=== PATIENT | female | born 1980 | race Caucasian/White ===

== ENCOUNTER 2017-08-24 18:45 | Emergency (ER) | payer MEDICAID, OTHER ==
--- NOTE | 2017-08-24 21:02 | EDM.PDOC ---
ED HPI GENERAL MEDICAL PROBLEM - General Chief Complaint: Lower Extremity Injury/Pain Stated Complaint: SPRAINED LEFT ANKLE Time Seen by Provider: 08/24/17 19:50 Source of Information: Reports: Patient, Family History Limitations: Reports: No Limitations - History of Present Illness INITIAL COMMENTS - FREE TEXT/NARRATIVE: pt stopped at the gas station and as she got out of the car and the left ankle turned inward. She developed alot of swelling in the ankle quite rapidly. Onset: Today Duration: Hour(s): Location: Reports: Lower Extremity, Left Associated Symptoms: Reports: No Other Symptoms Left Ankle Pain Score (Numeric/FACES): 4 - Related Data Allergies Allergy/AdvReac Type Severity Reaction Status Date / Time No Known Allergies Allergy Verified 08/24/17 19:52 Home Meds: Home Meds ALPRAZolam [Alprazolam] 1 mg PO BEDTIME 08/24/17 [History] Citalopram Hydrobromide [Celexa] 40 mg PO BEDTIME 08/24/17 [History] Norgestimate-Ethinyl Estradiol [Mononessa 28 Tablet] 1 tab PO BEDTIME 08/24/17 [ History] Past Medical History - Past Health History Medical/Surgical History: Denies Medical/Surgical History - Infectious Disease History Infectious Disease History: Reports: Chicken Pox Social & Family History - Tobacco Use Smoking Status *Q: Never Smoker Second Hand Smoke Exposure: No - Caffeine Use Caffeine Use: Reports: Coffee - Recreational Drug Use Recreational Drug Use: No Review of Systems - Review of Systems Review Of Systems: See Below Constitutional: Reports: No Symptoms Eyes: Reports: No Symptoms Ears: Reports: No Symptoms Nose: Reports: No Symptoms Mouth/Throat: Reports: No Symptoms Respiratory: Reports: No Symptoms Cardiovascular: Reports: No Symptoms GI/Abdominal: Reports: No Symptoms Genitourinary: Reports: No Symptoms Musculoskeletal: Reports: Other ( swelling in the left ankle area. She is mildly tender. ) Skin: Reports: No Symptoms ED EXAM, GENERAL - Physical Exam Exam: See Below Free Text/Narrative:: Pt arrived with swelling in the ankle and she has mild discomfort. She turned her ankle at a gas station Exam Limited By: No Limitations General Appearance: Alert, Mild Distress Extremities: Other (left ankle is swollen and she has mild tenderness. ) Neurological: Alert, Oriented Course - Vital Signs Last Recorded V/S: Last Vital Signs Temp 36.5 C 08/24/17 19:48 Pulse 95 08/24/17 19:48 Resp 16 08/24/17 19:48 BP 137/86 08/24/17 19:48 Pulse Ox 96 08/24/17 19:48 - Re-Assessments/Exams Free Text/Narrative Re-Assessment/Exam: 08/24/17 21:06 xray shows no definite fractures she has a small piece of bone pulled off of the tibia medially. This could indicate a small tear with the sprain/. Departure - Departure Time of Disposition: 20:59 Disposition: Home, Self-Care 01 Condition: Fair Clinical Impression: Left ankle sprain - Discharge Information Instructions: Crutch Use, Adult, [id number], Ankle Sprain, [id number] Referrals: PCP,None [Primary Care Provider] - Forms: ED Department Discharge Care Plan Goals: stirrup splint, crutches, elevate leg and ice pack motrin 600mg tid, as needed for pain, no work for the next 2 days, If persistent pain by the first of the week pt should see ortho for further care.
--- NOTE | 2017-08-25 09:27 | CR ---
Ankle Min 3V Lt CLINICAL HISTORY: Ankle strain, swelling FINDINGS: The soft tissues are swollen. This is more prominent over the lateral malleolus.. There is a small ossific density off the tip of the medial malleolus. This is suspect for an avulsion. There i s a small calcaneal spur. Ankle mortise is symmetric. Impression: Small ossific density off the tip of the medial malleolus is suspect for small avulsion f racture. Moderate soft tissue swelling
== END 2017-08-24 21:55 | disposition home or self-care (01) ==
LOC: JP.ED 18:45
DX: S93.402A Sprain of unspecified ligament of left ankle, initial encounter (principal); X50.9XXA Other and unspecified overexertion or strenuous movements or postures, initial encounter
CPT/HCPCS: 73610-26-LT; 73610-LT; 99284

== ENCOUNTER 2019-06-10 12:54 | Emergency (ER) | payer OTHER ==
[2019-06-10] MEDS ORDERED: Bacitracin Oint 1 GM U/D Packet TOP ONE (13:21)
--- NOTE | 2019-06-10 13:25 | EDM.PDOC ---
ED HPI GENERAL MEDICAL PROBLEM - General Chief Complaint: Laceration Stated Complaint: LACERATION ON LT PINKY Time Seen by Provider: 06/10/19 13:19 Source of Information: Reports: Patient, Family, RN Notes Reviewed History Limitations: Reports: No Limitations - History of Present Illness INITIAL COMMENTS - FREE TEXT/NARRATIVE: 39-year-old female presents emergency department today with a laceration to digit #5 left hand she injured herself with an [employer] knife doing a craft project she has no functional complaints bleeding is controlled - Related Data Allergies Allergy/AdvReac Type Severity Reaction Status Date / Time Sulfa (Sulfonamide Allergy Vomiting Verified 06/10/19 13:12 Antibiotics) Home Meds: Home Meds ALPRAZolam [Alprazolam] 1 mg PO BEDTIME 08/24/17 [History] PARoxetine HCL [Paroxetine HCl] 1 tab PO DAILY 06/10/19 [History] Past Medical History - Infectious Disease History Infectious Disease History: Reports: Chicken Pox - Past Surgical History Female Surgical History: Reports: Hysterectomy Social & Family History - Tobacco Use Smoking Status *Q: Never Smoker - Caffeine Use Caffeine Use: Reports: Coffee ED ROS GENERAL - Review of Systems Review Of Systems: See Below Constitutional: Reports: No Symptoms Skin: Reports: Wound Neurological: Reports: No Symptoms ED EXAM, SKIN/RASH Exam: See Below Text/Narrative:: Examination of the left hand there is a 1 cm laceration on the palmar surface digit #5 distal tip full range of motion of all digits the laceration is completely through the dermis radial pulses +2, sensation is intact Exam Limited By: No Limitations General Appearance: Alert, WD/WN, No Apparent Distress ED SKIN PROCEDURES - Laceration/Wound Repair Left Digit - 5th (Baby) Appearance: Subcutaneous, Linear Distal NVT: Neuro & Vascular Intact, No Tendon Injury Anesthetic Type: Digital Local Anesthesia - Lidocaine (Xylocaine): 1% Plain Local Anesthetic Volume: 2cc Skin Prep: Saline Saline Irrigation (cc's): 40 Exploration/Debridement/Repair: Wound Explored, In a Bloodless Field, Explored to Base Closed with: Sutures Lac/Wound length In cm: 1 Suture Size: 4-0 # of Sutures: 3 Suture Type: Prolene, Interrupted Sterile Dressing Applied: Nurse Tetanus Status Addressed: Yes (2014) Complications: No Course - Vital Signs Last Recorded V/S: Last Vital Signs Temp 98.1 F 06/10/19 13:17 Pulse 109 H 06/10/19 13:17 Resp 18 06/10/19 13:17 BP 151/91 H 06/10/19 13:17 Pulse Ox 96 06/10/19 13:17 - Orders/Labs/Meds Meds: Medications Discontinued Medications Generic Name Dose Route Start Last Admin Trade Name Nidia PRN Reason Stop Dose Admin Bacitracin 1 dose 06/10/19 13:21 06/10/19 13:30 Bacitracin Oint 1 Gm TOP 06/10/19 13:22 1 dose ONETIME ONE Administration Lidocaine HCl 5 ml 06/10/19 13:21 06/10/19 13:30 Xylocaine-Mpf 1% INJECT 06/10/19 13:22 5 ml ONETIME ONE Administration Departure - Departure Time of Disposition: 14:07 Disposition: Home, Self-Care 01 Condition: Good Clinical Impression: Laceration of left little finger Qualifiers: Encounter type: initial encounter Damage to nail status: without damage Foreign body presence: without foreign body Qualified Code(s): S61.217A - Laceration without foreign body of left little finger without damage to nail, initial encounter - Discharge Information Instructions: Wound Care, Adult Referrals: Dianna Lopez PA [Primary Care Provider] - Forms: ED Department Discharge Additional Instructions: Suture removal in 10 days, follow wound care instruction sheet return to the emergency department or follow-up in clinic for suture removal Sepsis Event Note - Evaluation Sepsis Screening Result: No Definite Risk - Focused Exam Vital Signs: Vital Signs Temp Pulse Resp BP Pulse Ox 06/10/19 13:17 98.1 F 109 H 18 151/91 H 96 06/10/19 13:10 98.1 F 109 H 18 151/91 H 96 Date Exam was Performed: 06/10/19 Time Exam was Performed: 14:07 - Assessment/Plan Plan: Assessment Acuity = acute Site and laterality = 1 cm laceration digit #5 left hand Etiology = secondary trauma Manifestations = none Location of injury = Home Lab values = none Plan Suture removal in 10 days follow-up with primary care or return to the emergency department for removal follow wound care instruction sheet This note was dictated using [employer] voice recognition software please call with any questions on syntax or grammar.
== END 2019-06-10 14:22 | disposition home or self-care (01) ==
LOC: JP.ED 12:54
DX: S61.217A Laceration without foreign body of left little finger without damage to nail, initial encounter (principal); Z88.2 Allergy status to sulfonamides; Z79.899 Other long term (current) drug therapy; W26.0XXA Contact with knife, initial encounter
CPT/HCPCS: 12001; 99282; J2001

== ENCOUNTER 2023-12-20 10:04 | Emergency (ER) | payer BC, OTHER ==
[2023-12-20] MEDS: Oxymetazoline 0.05% Nasal Spray 30 ML Bottle NAS ONE (11:09)
== END 2023-12-20 12:15 | disposition home or self-care (01) ==
LOC: JP.ED 10:04
DX: R04.0 Epistaxis (principal); Z90.710 Acquired absence of both cervix and uterus; Z79.899 Other long term (current) drug therapy; Z88.2 Allergy status to sulfonamides
CPT/HCPCS: 99283; A9270